=== PATIENT | male | born 2000 | race Caucasian/White ===

== ENCOUNTER 2022-07-07 16:09 | Emergency (ER) | payer SELFPAY | END 2022-07-07 16:31 | disposition left against medical advice (07) | LOC: ANHED 17:24 | DX: Z53.21 Procedure and treatment not carried out due to patient leaving prior to being seen by health care provider (principal) | CPT/HCPCS: 99199 ==

== ENCOUNTER 2022-11-18 09:10 | Emergency (ER) | payer OTHER, SELFPAY ==
[2022-11-18] VITALS (7 sets, daily range): BP systolic 111–136; BP diastolic 72–88; PULSE 48–69; RESP 12–20; TEMP 36.9; O2SAT 97–100
--- NOTE | ~2022-11-18 | XR_ITS ---
EXAMINATION: XR chest 2V 11/18/2022 09:38 INDICATION: Chest pain PROCEDURE: 2 view chest COMPARISON: No prior studies for comparison. FINDINGS: The lungs are clear. The cardiomediastinal silhouette is within normal limits. There are no pleural effusions. There is no pneumothorax suspected. IMPRESSION: 1: NO ACUTE CARDIOPULMONARY DISEASE. Reviewed, dictated and finalized at location B.
--- NOTE | ~2022-11-18 | CT_ITS ---
EXAMINATION: CT abdomen pelvis w con DATE: 11/18/2022 11:29 INDICATION: Epigastric pain TECHNIQUE: Computed tomography (CT) of the abdomen and pelvis was performed with 100 cc Omnipaque 350 intravenous contrast. The dose-length product was 402.80 mGy-cm. Automated exposure control and iter ative reconstruction technique were employed. COMPARISON: None. FINDINGS: Heart size normal. Lung bases are unremarkable. No significant pleural or pericardial effus ion. Subcentimeter hypodensity of the left kidney, too small to characterize, although statistically most likely a cyst. No significant vascular abnormality. No lymphadenopathy. Nonobstructive bowel pat tern. Normal appendix. The liver contains a small subcentimeter cyst near the dome. The spleen, pancr eas, adrenal glands and right kidney are unremarkable. Gallbladder is present. No free air or free fl uid. There is mild thickening of the distal esophagus, suspicious for esophagitis. No acute osseous a bnormality. IMPRESSION: 1. Mild thickening of the distal esophagus, suspicious for esophagitis. Reviewed, dictated and finalized at location B.
--- NOTE | 2022-11-18 09:11 | ECG_ITS ---
Measurements Intervals [place] Rate: 72 P: 62 NC: 159 QRS: 74 QRSD: 91 T: 47 QT: 354 QTc: 390 Interpretive Statements SINUS RHYTHM WITH SINUS ARRHYTHMIA BASELINE ARTIFACT- I, II, III, AVR, AVL, V2-V3 NORMAL ECG NO PREVIOUS ECG AVAILABLE FOR COMPARISON Electronically Signed On 11-18-2022 9:45:05 CDT by Uri Marie D.O.
[2022-11-18 09:40] LABS: Basophils Percent Auto 0.4 % (0.2-1.2); Eosinophils Absolute Auto 0.1 K/mm3 (0-0.3); Eosinophils Percent Auto 1.7 % (0-4.4); Hematocrit 45.3 % (42.0-52.0); Hemoglobin 16.2 g/dL (14.0-18.0); Immature Granulocyte Absolute 0.01 K/mm3 (0.00-0.031); Immature Granulocyte Percent A 0.2 % (0-0.5); Lymphocytes Absolute Auto 1.83 K/mm3 (0.9-3.2); Lymphocytes Percent Auto 34.2 % (18.3-44.2); Mean Corpuscular HGB Conc 35.8 g/dl (32-36); Mean Corpuscular Hemoglobin 31.6 pg (26-34); Mean Corpuscular Volume 88.3 fl (80-100); Mean Platelet Volume 12.3 fl (7.4-10.4); Monocytes Absolute Auto 0.5 K/mm3 (0.1-0.6); Monocytes Percent Auto 8.6 % (2.6-8.5); Neutrophils Absolute Auto 2.9 K/mm3 (1.3-6.7); Neutrophils Percent Auto 54.9 % (45.5-73.1); Platelet Count Result 143 k/mm3 (150-375); Red Blood Count 5.13 M/mm3 (4.6-6.20); Red Cell Distribution Width 11.6 % (11.5-14.5); White Blood Count 5.4 K/mm3 (4.5-10.0)
[2022-11-18 09:45] LABS: Partial Thromboplastin Time 28.9 SECONDS (22.3-36.8); Prothrombin Time 13.6 Seconds (11.1-14.7)
[2022-11-18 09:47] LABS: Alanine Aminotransferase 35 U/L (6-50); Albumin Level 4.8 g/dL (3.5-5.1); Alkaline Phosphatase 63 U/L (38-126); Anion Gap 9 mmol/L (8-16); Aspartate Amino Transferase 32 U/L (17-59); Bilirubin,Total 0.7 mg/dL (0.2-1.3); Blood Urea Nitrogen 14 mg/dL (9-20); Calcium 9.4 mg/dL (8.4-10.2); Carbon Dioxide 27 mmol/L (22-30); Chloride 103 mmol/L (98-107); Estimated CRCL calculation 119 ml/min; Estimated Glomerular Filt Rate > 60; Glucose 116 mg/dL (65-110); Lipase 247 U/L (23-300); Potassium 4.3 mmol/L (3.4-5.0); Sodium 139 mmol/L (137-145)
--- NOTE | 2022-11-18 09:54 | ED.CHESTPAIN ---
HPI - Chest Pain General Chief Complaint: Chest Pain Stated Complaint: I think I'm having a heart attack Time Seen by Provider: 11/18/22 09:20 Source: patient Mode of arrival: ambulatory Limitations: no limitations History of Present Illness HPI narrative: This is a 22-year-old male who presents to the ED with chief complaint of chest pain. I think I am having a heart attack. Patient states he has had pain in the epigastric to sternal area for the past 40 minutes. He also complains of nausea and vomiting. He admits to cannabis and alcohol use last evening.. States he has a history of gastritis and was prescribed pantoprazole a few months ago. He states he does not think he has been taking this. Also reports that eating lots of spicy foods and drinking lots of caffeine. Denies fevers, chills, shortness of breath, cough. Related Data Home Medications Medication Instructions Recorded Confirmed No Home Medications 11/18/22 11/18/22 Allergies Allergy/AdvReac Type Severity Reaction Status Date / Time No Known Allergies Allergy Verified 11/18/22 10:25 Review of Systems Review of Systems: CONSTITUTIONAL: Denies fever, chills, or sweats. EYES: Denies visual changes, redness, or discharge. ENT: Denies rhinorrhea, congestion, sore throat, or otalgia. CARDIOVASCULAR: See HPI RESPIRATORY: Denies cough or dyspnea. GASTROINTESTINAL: See GENITOURINARY: Denies dysuria or hematuria. SKIN: Denies rash or itching. MUSCULOSKELETAL: Denies back pain, joint pain, or myalgia. NEUROLOGIC: Denies headache, numbness, dizziness, or weakness. PSYCHIATRIC: Denies anxiety or depression. Exam Narrative: GENERAL: Well-appearing, well-nourished, and in no acute distress. Resting comfortably. HEAD: Normocephalic, atraumatic. EYES: PERRLA and EOMI. ENT: Nares clear, no rhinorrhea or epistaxis. Mucous membranes moist. Oropharynx without tonsillar hypertrophy exudate or other lesions. NECK: Supple. No adenopathy or masses. CHEST: No respiratory distress. Clear to auscultation. No wheezes rales or rhonchi HEART: Regular rate and rhythm. No murmur heard. Normal peripheral pulses. ABDOMEN: Mildly tender in the epigastrium. Soft, otherwise nontender, nondistended, normal active bowel sounds. Negative peritoneal signs MSK: Normal range of motion. No edema. SKIN: Warm, dry, no rash. NEURO: Alert and oriented x3. No focal deficits. PSYCH: Normal mood and affect. Course Course Emergency Course: After reevaluation he is feeling significantly improved with Zofran, Pepcid and fluids. Vital Signs Vital signs: Vital Signs Temperature 98.4 F 11/18/22 09:14 Pulse Rate 69 11/18/22 09:14 Respiratory Rate 16 11/18/22 09:14 Blood Pressure 136/78 11/18/22 09:14 Pulse Oximetry 99 11/18/22 09:14 Temperature 98.4 F 11/18/22 09:14 Pulse Rate 58 L 11/18/22 12:00 Respiratory Rate 14 11/18/22 12:00 Blood Pressure 129/88 11/18/22 12:00 Pulse Oximetry 97 11/18/22 12:00 Oxygen Delivery Room Air 11/18/22 10:15 MDM - Chest Pain MDM Narrative Medical decision making narrative: This is a 22-year-old male presents to the ED with chief complaint of epigastric pain x many weeks. Vitals are stable. Afebrile. Patient concerned he was having a heart attack. EKG is normal sinus rhythm. Labs are unremarkable. CT was ordered with his epigastric tenderness and is indicative of gastritis and esophagitis. It is revealed that he has not been taking his pantoprazole regularly for his diagnosed gastritis. His symptoms are consistent with gastritis and I encouraged him to cut back on spicy foods and other exacerbating factors. We discussed that he should be taking his pantoprazole very regularly. Also discussed close follow-up with his GI doctor. Return precautions given. Patient is understanding and agreeable to plan for discharge and follow-up with his doctor on this. Lab Data 11/18/22 09:21 0
[2022-11-18 09:59] LABS: Troponin I < 0.012 ng/mL (0.000-0.034)
[2022-11-18] MEDS: ASPIRIN 81 MG CHEWABLE TABLET 324 MG PO (10:15)
[2022-11-18] MEDS: ONDANSETRON INJ 4 MG/2 ML VIAL IV PUSH (10:21)
[2022-11-18] MEDS: FAMOTIDINE 20 MG/2 ML VIAL IV PUSH (10:22)
[2022-11-18] MEDS: SODIUM CHLORIDE 0.9% IV 1,000 ML 999 ML IV CONT (10:24)
== END 2022-11-18 12:10 | disposition home or self-care (01) ==
PROVIDERS: Emergency Medicine; Emergency Provider Physician Assistant
DX: K29.70 Gastritis, unspecified, without bleeding (principal)
CPT/HCPCS: 36415; 71046; 74177; 80053; 83690; 84484; 85025; 85610; 85730; 93005; 96361; 96374; 96375; 99284; A9270; J2405; J7030; Q9967